=== PATIENT | female | born 1945 | race Caucasian/White ===

== ENCOUNTER 2022-02-15 08:01 | Day surgery (SDC) | payer MEDICARE, OTHER ==
[~2022-02-15] VITALS: Ht 157.5 cm; Wt 79.5 kg
[2022-02-15 08:15] VITALS: BP 136/81
[2022-02-15] MEDS ORDERED: MIDAZolam 1 MG/ML 5ML VIAL ONE (08:29)
[2022-02-15] MEDS ORDERED: FENTANYL CITRATE/PF 50 MCG/1 ML VIAL ONE (08:29)
[2022-02-15] MEDS ORDERED: IRBE150T24 PO (08:37)
[2022-02-15] MEDS ORDERED: LACT10SO7 PO (08:37)
[2022-02-15] MEDS ORDERED: SEMA1PEN3 (08:37)
[2022-02-15] MEDS ORDERED: METF-1203 PO (08:37)
[2022-02-15] MEDS ORDERED: LEVO112T5 PO (08:37)
[2022-02-15] MEDS ORDERED: AMIT75TA7 PO (08:37)
[2022-02-15] MEDS ORDERED: EVOL140S2 SQ (08:37)
[2022-02-15 10:24] VITALS: BP 131/69
[2022-02-15 10:31] VITALS: BP 131/61
[2022-02-15 10:41] VITALS: BP 125/70
[2022-02-15 10:51] VITALS: BP 126/51
[2022-02-15 11:01] VITALS: BP 137/62
== END 2022-02-15 11:10 | disposition home or self-care (01) ==
LOC: GI LAB 08:01
PROVIDERS: ATTEND Internal Medicine Gastroenterology
DX: K59.00 Constipation, unspecified (principal); D12.9 Benign neoplasm of anus and anal canal
CPT/HCPCS: 45385; 99153; G0500; J2250; J3010; J7030; Z7512; 99152; A4620; C1889